=== PATIENT | female | born 1975 | race Caucasian/White ===

== ENCOUNTER 2017-06-17 16:37 | Emergency (ER) | payer MEDICAID ==
[2017-06-17 17:03] VITALS: BP 151/91
[2017-06-17] MEDS ORDERED: Acetaminophen/HYDROcodone 325-5 MG Tab PO ONE (17:15)
--- NOTE | 2017-06-17 18:27 | EDM.PDOC ---
ED HPI GENERAL MEDICAL PROBLEM - General Chief Complaint: Upper Extremity Injury/Pain Stated Complaint: L SHOULDER/ARM PAIN Time Seen by Provider: 06/17/17 17:10 Source of Information: Reports: Patient, Family, RN Notes Reviewed - History of Present Illness INITIAL COMMENTS - FREE TEXT/NARRATIVE: 41-year-old female injured left upper arm last evening. Walking down some steps , slipped, grabbed the handrail with her left arm and "wrenched her left arm upward and backward. She states she injured her shoulder and upper arm at that time. She has had a lot of pain today left shoulder and left upper arm. Pain is worse with motion. No LOC, neck, back or chest discomfort. No difficulty breathing. States she fractured her left upper arm last January about 4 months ago. X-rays at that time were done up at the [facility]. Fracture has been allowed to heal, no surgery. Left Shoulder Pain Score (Numeric/FACES): 6 - Related Data Allergies Allergy/AdvReac Type Severity Reaction Status Date / Time No Known Allergies Allergy Verified 06/17/17 17:03 Home Meds: Home Meds Celecoxib 200 mg PO BID 06/17/17 [History] DULoxetine [Cymbalta] 30 mg PO BID 06/17/17 [History] Gabapentin [Neurontin] 600 mg PO TID 06/17/17 [History] Multivitamin [Multivitamins] 1 each PO DAILY 06/17/17 [History] Omeprazole 20 mg PO DAILY 06/17/17 [History] Venlafaxine [Effexor XR] 150 mg PO DAILY 06/17/17 [History] cloNIDine [Catapres] 0.1 mg PO Q8H PRN 06/17/17 [History] tiZANidine [Zanaflex] 12 mg PO BEDTIME 06/17/17 [History] Past Medical History Respiratory History: Reports: Asthma Gastrointestinal History: Reports: GERD Musculoskeletal History: Reports: Fibromyalgia Psychiatric History: Reports: Anxiety - Past Surgical History GI Surgical History: Reports: Cholecystectomy Female Surgical History: Reports: Hysterectomy Social & Family History - Tobacco Use Smoking Status *Q: Current Every Day Smoker Years of Tobacco use: 30 Packs/Tins Daily: 1 - Recreational Drug Use Recreational Drug Use: No Review of Systems - Review of Systems Review Of Systems: See Below Constitutional: Reports: No Symptoms Eyes: Reports: No Symptoms Mouth/Throat: Reports: No Symptoms Respiratory: Denies: Shortness of Breath Cardiovascular: Denies: Chest Pain GI/Abdominal: Denies: Abdominal Pain, Nausea, Vomiting Musculoskeletal: Reports: Shoulder Pain, Arm Pain (left shoulderleft upper arm) . Denies: Leg Pain Skin: Reports: No Symptoms Neurological: Reports: Numbness (she has had some numbness of the left hand no better) ED EXAM, GENERAL - Physical Exam Exam: See Below General Appearance: Alert, Moderate Distress Eye Exam: Bilateral Eye: PERRL Head: Atraumatic Respiratory/Chest: No Respiratory Distress, Lungs Clear, Normal Breath Sounds Cardiovascular: Regular Rate, Rhythm Extremities: Limited Range of Motion (left arm secondary to pain), Other (quite parted tenderness of the left shoulder laterally, moderate tenderness of the left upper arm, moderate tenderness left mid posterior arm, no visible deformity , increased pain with motion) Neurological: Sensory/Motor Deficit Skin Exam: Warm, Dry, Normal Color. No: Ecchymosis Course - Vital Signs Last Recorded V/S: Last Vital Signs Temp 98 F 06/17/17 16:58 Pulse 87 06/17/17 16:58 Resp 16 06/17/17 16:58 BP 151/91 H 06/17/17 16:58 Pulse Ox 97 06/17/17 16:58 - Orders/Labs/Meds Orders: Active Orders 24 hr Category Date Time Status Humerus Lt [CR] Stat Exams 06/17/17 17:15 Taken Shoulder Comp Lt [CR] Stat Exams 06/17/17 17:14 Taken Meds: Medications Discontinued Medications Generic Name Dose Route Start Last Admin Trade Name Tabby PRN Reason Stop Dose Admin Hydrocodone Bitart/Acetaminophen 1 tab 06/17/17 17:15 06/17/17 17:38 [place] 325-5 Mg PO 06/17/17 17:16 1 tab ONETIME ONE Administration - Re-Assessments/Exams Free Text/Narrative Re-Assessment/Exam: 06/17/17 19:59 x-rays of the left shoulder show impacted fracture of the surgical neck area of the upper humerus. Unclear if this is still part of the healing process from fracture last january or if she may have new impaction upon the old injury. Still do not have radiology report at this time. This will definitely be nonsurgical either way. Discussed with patient and her . Treated with arm sling, hydrocodone if needed for severe pain. Orthopedic follow-up with Dr. Kaiser later this week recommended. Discharge instructions as documented Departure - Departure Time of Disposition: 18:21 Disposition: Home, Self-Care 01 Clinical Impression: Fall Qualifiers: Encounter type: initial encounter Qualified Code(s): W19.XXXA - Unspecified fall, initial encounter Fracture, humerus Qualifiers: Encounter type: initial encounter Humerus Location: surgical neck Fracture type : closed - Discharge Information Instructions: Fall Prevention in the Home, [id number], Humerus Fracture Treated With Immobilization, [id number] Referrals: Chikis Colon MD [Ordering Only Provider] - Forms: ED Department Discharge Additional Instructions: use arm sling, ice packs today and tomorrow for swelling, then alternate ice and heat as needed, hydrocodone if needed for severe pain, then go to alternating Tylenol and ibuprofen as needed, Follow up with Dr. Kaiser, Orthopedist for recheck later this week, call [phone] for appointment - My Orders Last 24 Hours: My Active Orders 06/17/17 17:14 Shoulder Comp Lt [CR] Stat 06/17/17 17:15 Humerus Lt [CR] Stat - Assessment/Plan Last 24 Hours: My Active Orders 06/17/17 17:14 Shoulder Comp Lt [CR] Stat 06/17/17 17:15 Humerus Lt [CR] Stat
--- NOTE | 2017-06-18 12:54 | CR ---
Left humerus: Two views of the left humerus were obtained. Comparison: No previous study. Sclerotic area seen within the proximal humerus involving the surgical neck compatible with healing fracture. Plate and screws are identified affixing an old clavicle fracture. No acute fracture or other bony abnormality is appreciated. Impression: 1. Healing fracture within the surgical neck of the left humerus. Please correlate as to age of this finding. 2. Plate and screws affixing old clavicle fracture. 3. Left humerus exam is otherwise unremarkable. Diagnostic code #3
--- NOTE | 2017-06-18 12:54 | CR ---
Left shoulder: Three views of the left shoulder were obtained. Comparison: No prior study. Sclerosis is identified within the surgical neck presumably due to healing fracture. Glenohumeral joint and acromioclavicular joint are unremarkable. Several old healed left upper rib fractures are seen. Plate and screws are seen affixing an old healed clavicle fracture. Nothing acute is appreciated. No dislocation is noted. Impression: 1. Sclerosis within the surgical neck of the left humerus compatible with healing fracture. Please correlate as to age of this finding. 2. Other old trauma as noted above. Nothing acute is seen. Diagnostic code #2
== END 2017-06-17 18:36 | disposition home or self-care (01) ==
LOC: JD.ED 16:37
DX: S42.212A Unspecified displaced fracture of surgical neck of left humerus, initial encounter for closed fracture (principal); J45.909 Unspecified asthma, uncomplicated; F17.210 Nicotine dependence, cigarettes, uncomplicated; K21.9 Gastro-esophageal reflux disease without esophagitis; Z90.49 Acquired absence of other specified parts of digestive tract; Z79.899 Other long term (current) drug therapy; W10.9XXA Fall (on) (from) unspecified stairs and steps, initial encounter
CPT/HCPCS: 73030; 73060; 99284; A9270